=== PATIENT | male | born 1945 | race Caucasian/White ===

== ENCOUNTER 2016-12-26 08:07 | Emergency (ER) | payer MEDICARE, BC ==
--- NOTE | 2016-12-26 08:56 | EDM.PDOC ---
ED HISTORY OF PRESENT ILLNESS - General Chief Complaint: Cardiovascular Problem Stated Complaint: RACING PLUSE Time Seen by Provider: 12/26/16 08:35 Source: Reports: Patient History Limitations: Reports: No limitations - History of Present Illness INITIAL COMMENTS - FREE TEXT/NARRATIVE: 71-year-old male with a history of paroxysmal atrial fibrillation woke this morning at 4:30 AM with palpitations, diaphoretic and malaise. No shortness of breath or chest pain, no nausea or vomiting. When he got up this morning he felt his pulse was still fast and irregular so came in to be checked. No recent illness, no significant medication changes. He did not get his morning medications, carvedilol is one of his meds so he was allowed to take that now. He has not eaten anything this morning. Severity: mild Associated Symptoms: Reports: diaphoresis (Earlier, now resolved), malaise. Denies: chest pain, cough, nausea/vomiting, shortness of breath - Related Data Allergies/ADRs: Allergies Allergy/AdvReac Type Severity Reaction Status Date / Time lisinopril Allergy Cough Verified 08/29/14 08:05 Home Meds: Home Meds Acetaminophen [Acetaminophen 8 Hour] 650 mg PO Q4HR PRN 08/28/14 [History] Alfuzosin [Uroxatral] 10 mg PO DAILY 08/28/14 [History] Ascorbate Calcium [Vitamin C] 500 mg PO DAILY 08/28/14 [History] Aspirin [Low Dose Aspirin EC] 81 mg PO DAILY 08/28/14 [History] Carvedilol [Coreg] 12.5 mg PO BID 08/28/14 [History] Clopidogrel [Plavix] 75 mg PO DAILY 08/28/14 [History] Fish Oil/[place]-3 Fatty Acids [Fish Oil 1,000 MG] 1,000 mg PO BID 08/28/14 [ History] Garlic 1,000 mg PO BID 08/28/14 [History] Losartan Potassium [Cozaar] 50 mg PO DAILY 08/28/14 [History] Multivitamin [Multi-Vitamin Daily] 1 each PO DAILY 08/28/14 [History] Nitroglycerin [Nitrostat] 0.4 mg SL ASDIRECTED 08/28/14 [History] atorvaSTATin [Lipitor] 40 mg PO BEDTIME 08/28/14 [History] amLODIPine [Norvasc] 5 mg PO DAILY 12/26/16 [History] Past Medical History HEENT History: Reports: Impaired vision Cardiovascular History: Reports: Afib, Hypertension, [place] Genitourinary History: Reports: BPH Oncologic (Cancer) History: Reports: Other (see below) Other Oncologic History: colorectal cancer - Infectious Disease History Infectious Disease History: Reports: Chicken pox, Measles, Mumps, Shingles - Past Surgical History Cardiovascular Surgical History: Reports: Carotid stents GI Surgical History: Reports: Hernia repair/other Oncologic Surgical History: Reports: Other (see below) Other Oncologic Surgeries/Procedures: colorectal surgery Dermatological Surgical History: Reports: Other (see below) Social & Family History - Tobacco Use Smoking Status *Q: Never Smoker Second Hand Smoke Exposure: No - Caffeine Use Caffeine Use: Reports: Coffee - Alcohol Use Days Per Week of Alcohol Use: 1 Number of Drinks Per Day: 1 Total Drinks Per Week: 1 - Recreational Drug Use Recreational Drug Use: No Drug Use in Last 12 Months: No ED ROS GENERAL - Review of Systems Review Of Systems: See Below Constitutional: Denies: fever, chills HEENT: Reports: Eye discharge Respiratory: Denies: shortness of breath, cough Cardiovascular: Reports: Palpitations. Denies: Chest pain GI/Abdominal: Denies: Abdominal pain, Nausea, Vomiting : Reports: no symptoms Skin: Reports: diaphoresis (When he woke at 4:30 he was diaphoretic) Neurological: Denies: headache Psychiatric: Reports: No symptoms ED EXAM, GENERAL - Physical Exam Exam: See Below Exam Limited By: No limitations General Appearance: alert, no apparent distress Respiratory/Chest: no respiratory distress, lungs clear Cardiovascular: tachycardia, irregularly irregular GI/Abdominal: soft, non tender Extremities: normal inspection. No: pedal edema Neurological: alert, oriented Psychiatric: normal affect, normal mood Skin Exam: Warm, Dry EKG INTERPRETATION EKG Date: 12/26/16 Rhythm: a-fib Rate (beats/min): 125 ST-T: normal Course - Vital Signs Last Recorded V/S: Last Vital Signs Temp 97.7 F 12/26/16 08:21 Pulse 108 H 12/26/16 09:18 Resp 18 12/26/16 08:21 BP 128/78 12/26/16 09:18 Pulse Ox 97 12/26/16 08:21 - Orders/Labs/Meds Orders: Active Orders 24 hr Category Date Time Status EKG Documentation Completion [RC] ASDIRECTED Care 12/26/16 08:52 Active EKG 12 Lead [EK] Routine Ther 12/26/16 08:52 Ordered Labs: Laboratory Tests 12/26/16 12/26/16 Range/Units 09:02 09:02 WBC 4.4 L (4.5-11.0) K/uL RBC 4.31 (4.30-5.90) M/uL Hgb 13.3 (12.0-15.0) g/dL Hct 38.1 L (40.0-54.0) % MCV 88 (80-98) fL MCH 31 (27-31) pg MCHC 35 (32-36) % Plt Count 225 (150-400) K/uL Neut % (Auto) 65 (36-66) % Lymph % (Auto) 17 L (24-44) % [place] % (Auto) 10 H (2-6) % Eos % (Auto) 7 H (2-4) % Baso % (Auto) 1 (0-1) % Sodium 143 (140-148) mmol/L Potassium 4.1 (3.6-5.2) mmol/L Chloride 108 (100-108) mmol/L Carbon Dioxide 28 (21-32) mmol/L Anion Gap 6.8 (5.0-14.0) mmol/L BUN 21 H D (7-18) mg/dL Creatinine 1.0 (0.8-1.3) mg/dL Est Cr Clr Drug Dosing 65.55 mL/min Estimated GFR (MDRD) > 60 (>60) Glucose 121 H (74-106) mg/dL Calcium 8.3 L (8.5-10.1) mg/dL Troponin I 0.023 (0.000-0.056) ng/mL Meds: Medications Discontinued Medications Generic Name Dose Route Start Last Admin Trade Name Freq PRN Reason Stop Dose Admin Diltiazem HCl 20 mg 12/26/16 09:07 12/26/16 09:18 Diltiazem IVPUSH 12/26/16 09:08 20 mg ONETIME ONE Administration Propofol Confirm 12/26/16 11:02 Diprivan 20 Ml Administered 12/26/16 11:03 Dose 200 mg .ROUTE .STK-MED ONE - Re-Assessments/Exams Free Text/Narrative Re-Assessment/Exam: 12/26/16 08:55 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 His rate was variable ranging from 90-135. BMP, CBC and troponin were obtained and he was allowed to take his regular dose of carvedilol. 12/26/16 11:50 After 20 mg of Cardizem IV his rate slowed to 45-60 for a full half hour but he didn't convert. Dr. Wang of the hospitalist service was consulted and did an elective cardioversion which was successful. Patient will be discharged to resume his regular medications, return as needed Departure - Departure Time of Disposition: 12:46 Disposition: Home, Self-Care 01 Condition: good Clinical Impression: Atrial fibrillation with rapid ventricular response Instructions: Atrial Fibrillation, [id number] Referrals: Cindy Headley NP [Primary Care Provider] - Forms: ED Department Discharge Care Plan Goals: Increase activity as tolerated, resume your regular medications and return anytime if concerns. - My Orders Last 24 Hours: My Active Orders 12/26/16 08:52 EKG Documentation Completion [RC] ASDIRECTED EKG 12 Lead [EK] Routine - Assessment/Plan Last 24 Hours: My Active Orders 12/26/16 08:52 EKG Documentation Completion [RC] ASDIRECTED EKG 12 Lead [EK] Routine
[2016-12-26] MEDS ORDERED: Diltiazem 25 MG/5 ML SDV IVPUSH ONE (09:07)
--- NOTE | 2016-12-26 10:54 | PCM.CONS ---
H&P History of Present Illness - General Date of Service: 12/26/16 Source of Information: Patient, Provider, RN notes reviewed History Limitations: Reports: No limitations - History of Present Illness Initial Comments - Free Text/Narative: Mr. Wright is a 71-year-old gentleman who I been asked to see by Dr. Damon for further evaluation and management atrial fibrillation with rapid ventricular response. Mr. Wright is had a known history of coronary artery disease and is status post previous angioplasty and stent placement. He also is had one previous episode of atrial fibrillation with rapid ventricular response. He was seen and evaluated in the emergency department, given IV diltiazem for rate control and then after approximately 1/2 hour converted to sinus rhythm. He denies any other episodes of atrial fibrillation he's been aware of since then. This morning we will noted rapid irregular heart rhythm he was perhaps mildly lightheaded but denied significant shortness of breath or chest pain. On evaluation in the emergency department he was found to be in atrial fibrillation with rapid ventricular response. Electrolytes are within the desired range and troponin is normal. He has received IV diltiazem but his remained in atrial fibrillation with a slower rate. - Related Data Allergies/Adverse Reactions: Allergies Allergy/AdvReac Type Severity Reaction Status Date / Time lisinopril Allergy Cough Verified 08/29/14 08:05 Home Medications: Home Meds Acetaminophen [Acetaminophen 8 Hour] 650 mg PO Q4HR PRN 08/28/14 [History] Alfuzosin [Uroxatral] 10 mg PO DAILY 08/28/14 [History] Ascorbate Calcium [Vitamin C] 500 mg PO DAILY 08/28/14 [History] Aspirin [Low Dose Aspirin EC] 81 mg PO DAILY 08/28/14 [History] Carvedilol [Coreg] 12.5 mg PO BID 08/28/14 [History] Clopidogrel [Plavix] 75 mg PO DAILY 08/28/14 [History] Fish Oil/[place]-3 Fatty Acids [Fish Oil 1,000 MG] 1,000 mg PO BID 08/28/14 [ History] Garlic 1,000 mg PO BID 08/28/14 [History] Losartan Potassium [Cozaar] 50 mg PO DAILY 08/28/14 [History] Multivitamin [Multi-Vitamin Daily] 1 each PO DAILY 08/28/14 [History] Nitroglycerin [Nitrostat] 0.4 mg SL ASDIRECTED 08/28/14 [History] atorvaSTATin [Lipitor] 40 mg PO BEDTIME 08/28/14 [History] amLODIPine [Norvasc] 5 mg PO DAILY 12/26/16 [History] Past Medical History HEENT History: Reports: Impaired vision Cardiovascular History: Reports: Afib, Hypertension, [place] Genitourinary History: Reports: BPH Oncologic (Cancer) History: Reports: Other (see below) Other Oncologic History: colorectal cancer - Infectious Disease History Infectious Disease History: Reports: Chicken pox, Measles, Mumps, Shingles - Past Surgical History Cardiovascular Surgical History: Reports: Carotid stents GI Surgical History: Reports: Hernia repair/other Oncologic Surgical History: Reports: Other (see below) Other Oncologic Surgeries/Procedures: colorectal surgery Dermatological Surgical History: Reports: Other (see below) Social & Family History - Tobacco Use Smoking Status *Q: Never Smoker Second Hand Smoke Exposure: No - Caffeine Use Caffeine Use: Reports: Coffee - Alcohol Use Days Per Week of Alcohol Use: 1 Number of Drinks Per Day: 1 Total Drinks Per Week: 1 - Recreational Drug Use Recreational Drug Use: No Drug Use in Last 12 Months: No H&P Review of Systems - Review of Systems: Review Of Systems: See Below General: Reports: no symptoms HEENT: Reports: no symptoms Pulmonary: Reports: no symptoms Cardiovascular: Reports: palpitations, lightheadedness. Denies: chest pain, dyspnea on exertion, orthopnea, PND, edema, syncope Gastrointestinal: Reports: No symptoms Musculoskeletal: Reports: no symptoms Exam - Exam Exam: See Below - Vital Signs Vital Signs: Last Vital Signs Temp 97.7 F 12/26/16 08:21 Pulse 108 H 12/26/16 09:18 Resp 18 12/26/16 08:21 BP 128/78 12/26/16 09:18 Pulse Ox 97 12/26/16 08:21 Weight: 180 lb - Exam General: alert, oriented, cooperative Neck: supple, trachea midline, +2 carotid pulse wo bruit Lungs: Clear to auscultation, Normal respiratory effort Cardiovascular: normal S1, normal S2, irregular rhythm, bradycardia. No: systolic murmur, diastolic murmur Abdomen: normal bowel sounds, soft Extremities: 3, normal inspection, 10 - Patient Data Lab Results last 24 hrs: Laboratory Results - last 24 hr 12/26/16 12/26/16 Range/Units 09:02 09:02 WBC 4.4 L (4.5-11.0) K/uL RBC 4.31 (4.30-5.90) M/uL Hgb 13.3 (12.0-15.0) g/dL Hct 38.1 L (40.0-54.0) % MCV 88 (80-98) fL MCH 31 (27-31) pg MCHC 35 (32-36) % Plt Count 225 (150-400) K/uL Neut % (Auto) 65 (36-66) % Lymph % (Auto) 17 L (24-44) % [place] % (Auto) 10 H (2-6) % Eos % (Auto) 7 H (2-4) % Baso % (Auto) 1 (0-1) % Sodium 143 (140-148) mmol/L Potassium 4.1 (3.6-5.2) mmol/L Chloride 108 (100-108) mmol/L Carbon Dioxide 28 (21-32) mmol/L Anion Gap 6.8 (5.0-14.0) mmol/L BUN 21 H D (7-18) mg/dL Creatinine 1.0 (0.8-1.3) mg/dL Est Cr Clr Drug Dosing 65.55 mL/min Estimated GFR (MDRD) > 60 (>60) Glucose 121 H (74-106) mg/dL Calcium 8.3 L (8.5-10.1) mg/dL Troponin I 0.023 (0.000-0.056) ng/mL Result Diagrams: 12/26/16 09:02 12/26/16 09:02 Consult PN Assessment/Plan Procedures: Procedures ASSAY OF TROPONIN QUANT (09/23/14) BIOPSY OF EXTERNAL EAR (08/29/14) COMPLETE CBC W/AUTO DIFF WBC (09/23/14) COMPREHEN METABOLIC PANEL (09/23/14) ELECTROCARDIOGRAM TRACING (09/23/14) EMERGENCY DEPT VISIT (09/23/14) EMERGENCY DEPT VISIT (09/23/14) PRP I/DONALD INIT REDUC >5 YR (08/29/14) ROUTINE VENIPUNCTURE (09/23/14) THER/PROPH/DIAG INJ IV PUSH (09/23/14) VASCULAR STUDY (09/20/15) (1) Atrial fibrillation with rapid ventricular response SNOMED Code(s): 667459135183426 Code(s): I48.91 - UNSPECIFIED ATRIAL FIBRILLATION Current Visit: Yes Problem List Initiated/Reviewed/Updated: Yes Plan: ASSESSMENT AND RECOMMENDATIONS ATRIAL FIBRILLATION WITH RAPID VENTRICULAR RESPONSE-this is his second documented episode, patient is very aware of when he has atrial fibrillation and denies that he was admitted through the day yesterday but definitely awoke with it this morning. He does have known underlying coronary artery disease which has been asymptomatic and he denies current symptoms of chest pain or pressure associated with atrial fibrillation. Rate control significantly improved and actually has been somewhat bradycardic after having received 20 mg of IV Cardizem. Unfortunately he has not yet spontaneously converted and Dr. Horner has asked me to see him to discuss options for management. I discussed with the patient options for current management including further rate controlling medication and observation admission overnight, worse as cardioversion in the emergency department, versus long-term rate control, with anticoagulation and no attempt at cardioversion. After discussion and consideration including the risks and benefits of each approach patient has decided to proceed with electrical cardioversion in the emergency department. He is had nothing to eat or drink some supper last night other than a small amount of water with his Coreg this morning. -Consult anesthesia for IV sedation -Proceed with electrical cardioversion Requesting Provider: PORTER Date Consult Requested: 12/26/16 Patient History Reviewed: Yes Notified Requestor: Yes
[2016-12-26] MEDS ORDERED: Propofol 200 MG/20 ML SDV ONE (11:02)
--- NOTE | 2016-12-26 11:55 | PCM.OPNOTE ---
- General Post-Op/Procedure Note Date of Surgery/Procedure: 12/26/16 Operative Procedure(s): Electrical cardioversion Pre Op Diagnosis: Atrial fibrillation with rapid ventricular response Post-Op Diagnosis: Atrial fibrillation with rapid ventricular response successfully converted to sinus rhythm Primary Surgeon: Germain Wang Complications: None Condition: Good Free Text/Narrative:: This report is a 71-year-old gentleman who presented to the emergency department this morning with new onset of atrial fibrillation with rapid ventricular response. He was given IV diltiazem for rate control but did not spontaneously convert urine options concerning management of the atrial fibrillation were reviewed with the patient including potential benefits and rest. He has decided to proceed with electrical cardioversion. Anesthesia service was consulted and he was given IV propofol for sedation. After adequate sedation was achieved he was cardioverted to sinus rhythm using 200 J of energy delivered in a synchronized fashion. This was successful in converting him to sinus rhythm but unfortunately after short period of time he went back into atrial fibrillation. A second attempt at cardioversion was made using 300 J of energy delivered in a synchronized fashion, this was successful in converting him to sinus rhythm and he remained in sinus rhythm following this conversion. He will be discharged to home when he is recovered from his IV sedation. He's instructed not to drive for a period of 24 hours following the cardioversion. Followup appointment should be scheduled for him with his primary care provider within one week. Consider further evaluation with echocardiogram if he has not had this done recently.
[2016-12-26 13:47] VITALS: BP 123/68
== END 2016-12-26 12:10 | disposition home or self-care (01) ==
LOC: JP.ED 08:07
DX: I48.91 Unspecified atrial fibrillation (principal); I10 Essential (primary) hypertension; I25.2 Old myocardial infarction; Z79.82 Long term (current) use of aspirin; Z88.8 Allergy status to other drugs, medicaments and biological substances
CPT/HCPCS: 36415; 80048; 84484; 85025; 93005; 96374; 99285; J2704; 92960; 93010; 99284; J3490

== ENCOUNTER 2017-05-25 12:00 | Emergency (ER) | payer MEDICARE, BC ==
[2017-05-25] MEDS ORDERED: Sodium Chloride 0.9% 10 ML Syringe FLUSH PRN (12:20)
[2017-05-25] MEDS ORDERED: Sodium Chloride 0.9% 1,000 ML IV ONE ×2 (12:34→15:59)
[2017-05-25] MEDS ORDERED: Diltiazem 25 MG/5 ML SDV IVPUSH ONE (12:35)
[2017-05-25] MEDS ORDERED: Ondansetron 4 MG/2 ML SDV IVPUSH ONE (12:38)
--- NOTE | 2017-05-25 12:40 | EDM.PDOC ---
ED HPI GENERAL MEDICAL PROBLEM - General Chief Complaint: General Stated Complaint: DIZZY HEART RATE SKIPPING AROUND Time Seen by Provider: 05/25/17 12:25 Source of Information: Reports: Patient History Limitations: Reports: No Limitations - History of Present Illness INITIAL COMMENTS - FREE TEXT/NARRATIVE: Oswaldo is a 71 year old male with a hx of paroxysmal atrial fibrillation who presents to the ED with c/o lightheadedness, nausea, and generally not feeling well since 0600 this morning. Patient reports he felt palpitations at that time and proceeded to go into atrial fibrillation. Patient has the same presentation in December and was cardioverted here in the ED after failure of diltiazem. Patient denies any chest pain/sob. Patient denies any URI symptoms , or fever/chills Onset: Today, Sudden Onset Date: 05/25/17 Onset Time: 06:00 - Related Data Allergies Allergy/AdvReac Type Severity Reaction Status Date / Time lisinopril AdvReac Cough Verified 05/25/17 15:10 Home Meds: Home Meds Acetaminophen [Acetaminophen 8 Hour] 650 mg PO Q4HR PRN 08/28/14 [History] Alfuzosin [Uroxatral] 10 mg PO DAILY 08/28/14 [History] Ascorbate Calcium [Vitamin C] 500 mg PO DAILY 08/28/14 [History] Aspirin [Low Dose Aspirin EC] 81 mg PO DAILY 08/28/14 [History] Carvedilol [Coreg] 12.5 mg PO BID 08/28/14 [History] Clopidogrel [Plavix] 75 mg PO DAILY 08/28/14 [History] Fish Oil/[place]-3 Fatty Acids [Fish Oil 1,000 MG] 1,000 mg PO BID 08/28/14 [ History] Garlic 1,000 mg PO BID 08/28/14 [History] Losartan Potassium [Cozaar] 50 mg PO DAILY 08/28/14 [History] Multivitamin [Multi-Vitamin Daily] 1 each PO DAILY 08/28/14 [History] Nitroglycerin [Nitrostat] 0.4 mg SL ASDIRECTED 08/28/14 [History] atorvaSTATin [Lipitor] 40 mg PO BEDTIME 08/28/14 [History] amLODIPine [Norvasc] 5 mg PO DAILY 12/26/16 [History] Past Medical History HEENT History: Reports: Impaired Vision Cardiovascular History: Reports: High Cholesterol, Hypertension, [place] Genitourinary History: Reports: BPH Oncologic (Cancer) History: Reports: Other (See Below) Other Oncologic History: colorectal, chemo radiation and surgery - Infectious Disease History Infectious Disease History: Reports: Chicken Pox, Measles, Mumps, Shingles - Past Surgical History Cardiovascular Surgical History: Reports: Carotid Stents Other Cardiovascular Surgeries/Procedures: last time for stents 2007 GI Surgical History: Reports: Hernia Repair/Other Oncologic Surgical History: Reports: Other (See Below) Dermatological Surgical History: Reports: Other (See Below) Social & Family History - Tobacco Use Smoking Status *Q: Never Smoker Second Hand Smoke Exposure: No - Caffeine Use Caffeine Use: Reports: Coffee - Alcohol Use Days Per Week of Alcohol Use: 1 Number of Drinks Per Day: 1 Total Drinks Per Week: 1 - Recreational Drug Use Recreational Drug Use: No Drug Use in Last 12 Months: No ED ROS GENERAL - Review of Systems Review Of Systems: See Below HEENT: Reports: No Symptoms Respiratory: Reports: No Symptoms Cardiovascular: Reports: Lightheadedness Endocrine: Reports: Fatigue GI/Abdominal: Reports: Nausea : Reports: No Symptoms Musculoskeletal: Reports: No Symptoms Skin: Reports: No Symptoms ED EXAM, GENERAL - Physical Exam Exam: See Below Exam Limited By: No Limitations General Appearance: Alert Respiratory/Chest: No Respiratory Distress, Lungs Clear, Normal Breath Sounds Cardiovascular: Tachycardia, Irregularly Irregular GI/Abdominal: Normal Bowel Sounds, Soft, Non-Tender Extremities: Normal Inspection Neurological: Alert, Oriented, CN II-XII Intact Psychiatric: Normal Affect Skin Exam: Warm, Dry, Pallor Lymphatic: No Adenopathy ED GENERAL MEDICAL PROCEDURES - Additional/Other Procedure(s) Other (Free Text) Procedure(s): Cardioversion at 1520 with 200 J after obtaining consent, time out called prior to procedure. Patient sedated with 80 mg of Propofol prior to cardioversion and cardioverted nicely after one shock to NSR, bradycardic in the 50's. EKG obtained. Patient recovering, maintaining airway and VS stable. Dr. Horner at bedside for sedation and cardioversion. EKG INTERPRETATION EKG Date: 05/25/17 Time: 12:40 Rhythm: A-Fib Rate (Beats/Min): 117 [place]: Normal P-Wave: Absent QRS: Normal ST-T: Normal QT: Normal Comparison: No Change EKG Interpretation Comments: No change from 12/26/2016 Repeat EKG at 1530 shows a sinus bradycardia. Course - Vital Signs Last Recorded V/S: Last Vital Signs Temp 36.7 C 05/25/17 14:40 Pulse 75 05/25/17 14:40 Resp 16 05/25/17 14:40 BP 144/81 H 05/25/17 14:40 Pulse Ox 94 L 05/25/17 14:40 Normal is a 71 year old male with a hx of Paroxysmal atrial fibrillation who presents to the ED today with c/o dizziness/lightheadedness, nausea and not feeling well since 0600 this am, similar in presentation to December of this year when he required cardioversion. PIV established, patient was given a liter of NS and 25 mg of Diltiazem, his rate slowed to upper 60's to upper 80's but he continues to remain in atrial fibrillation which is not surprising considering he needed cardioversion in the past. Patient is on Plavix and well within the window for cardioversion, he is agreeable to proceed, risks/benefits discussed and consent signed. Will use propofol for sedation, patient has no issues with sedation in the past. NPO since last night. 1600-Patient reports he is feeling much better. He is awake, eating and drinking, remains in sinus rhythm. Vital signs stable. Discussed follow up with cardiology. Reasons to return to the ED discussed. Patient agreeable and discharged in stable condition with his driving. - Orders/Labs/Meds Orders: Active Orders 24 hr Category Date Time Status Cardiac Monitoring [RC] .As Directed Care 05/25/17 13:55 Active Cardioversion, Elective [RC] ASDIRECTED Care 05/25/17 13:56 Active EKG Documentation Completion [RC] ASDIRECTED Care 05/25/17 12:07 Active EKG Documentation Completion [RC] ASDIRECTED Care 05/25/17 15:03 Active Peripheral IV Care [RC] . DIRECTED Care 05/25/17 12:20 Active Sedation Scale [RASS Sedation Scale] [RC] ASDIRECTED Care 05/25/17 13:54 Active Sodium Chloride 0.9% [Saline Flush] Med 05/25/17 12:20 Active 10 ml FLUSH ASDIRECTED PRN Peripheral IV Insertion Adult [OM.PC] Routine Oth 05/25/17 12:20 Ordered EKG 12 Lead [EK] Routine Ther 05/25/17 15:03 Ordered EKG 12 Lead [EK] Stat Ther 05/25/17 12:07 Ordered Medication Orders Sodium Chloride (Saline Flush) 10 ml FLUSH ASDIRECTED PRN PRN Reason: Keep Vein Open Last Admin: 05/25/17 13:14 Dose: 10 ml Labs: Laboratory Tests 05/25/17 05/25/17 Range/Units 12:50 12:50 WBC 3.5 L (4.5-11.0) K/uL RBC 4.49 (4.30-5.90) M/uL Hgb 13.7 (12.0-15.0) g/dL Hct 39.1 L (40.0-54.0) % MCV 87 (80-98) fL MCH 31 (27-31) pg MCHC 35 (32-36) % Plt Count 216 (150-400) K/uL Neut % (Auto) 71 H (36-66) % Lymph % (Auto) 15 L (24-44) % [place] % (Auto) 8 H (2-6) % Eos % (Auto) 6 H (2-4) % Baso % (Auto) 1 (0-1) % Sodium 142 (140-148) mmol/L Potassium 3.7 (3.6-5.2) mmol/L Chloride 107 (100-108) mmol/L Carbon Dioxide 28 (21-32) mmol/L Anion Gap 6.8 (5.0-14.0) mmol/L BUN 12 (7-18) mg/dL Creatinine 1.0 (0.8-1.3) mg/dL Est Cr Clr Drug Dosing 65.55 mL/min Estimated GFR (MDRD) > 60 (>60) Glucose 150 H (74-106) mg/dL Calcium 8.6 (8.5-10.1) mg/dL Total Bilirubin 0.9 (0.2-1.0) mg/dL AST 26 (15-37) U/L ALT 26 (12-78) U/L Alkaline Phosphatase 76 (46-116) U/L Troponin I 0.019 (0.000-0.056) ng/mL Total Protein 7.3 (6.4-8.2) g/dL Albumin 3.6 (3.4-5.0) g/dL Globulin 3.7 H (2.3-3.5) g/dL Albumin/Globulin Ratio 1.0 L (1.2-2.2) Meds: Medications Generic Name Dose Route Start Last Admin Trade Name Freq PRN Reason Stop Dose Admin Sodium Chloride 10 ml 05/25/17 12:20 05/25/17 13:14 Saline Flush FLUSH 10 ml ASDIRECTED PRN Administration Keep Vein Open Discontinued Medications Generic Name Dose Route Start Last Admin Trade Name Freq PRN Reason Stop Dose Admin Diltiazem HCl 25 mg 05/25/17 12:35 05/25/17 13:09 Diltiazem IVPUSH 05/25/17 12:36 25 mg ONETIME ONE Administration Sodium Chloride 1,000 mls @ 500 mls/hr 05/25/17 12:34 05/25/17 12:53 Normal Saline IV 05/25/17 14:33 500 mls/hr .BOLUS ONE Administration Ondansetron HCl 4 mg 05/25/17 12:38 05/25/17 13:05 Zofran IVPUSH 05/25/17 12:39 4 mg ONETIME ONE Administration Propofol 200 mg 05/25/17 13:54 05/25/17 15:32 Diprivan 20 Ml IVPUSH 05/25/17 13:55 200 mg ONETIME ONE Administration Departure - Departure Time of Disposition: 16:30 Disposition: Home, Self-Care 01 Condition: Good Clinical Impression: Paroxysmal a-fib - Discharge Information Instructions: Atrial Fibrillation Forms: ED Department Discharge Additional Instructions: Oswaldo, Make sure you are staying well hydrated. I would like you to see cardiology and your primary MD this next week. Take your previously prescribed medications as prescribed. Return to the ED with any complications or concerns. - My Orders Last 24 Hours: My Active Orders 05/25/17 12:07 EKG Documentation Completion [RC] ASDIRECTED EKG 12 Lead [EK] Stat 05/25/17 12:20 Peripheral IV Care [RC] . DIRECTED Sodium Chloride 0.9% [Saline Flush] 10 ml FLUSH ASDIRECTED PRN Peripheral IV Insertion Adult [OM.PC] Routine 05/25/17 13:54 Sedation Scale [RASS Sedation Scale] [RC] ASDIRECTED 05/25/17 13:55 Cardiac Monitoring [RC] .As Directed 05/25/17 13:56 Cardioversion, Elective [RC] ASDIRECTED 05/25/17 15:03 EKG Documentation Completion [RC] ASDIRECTED EKG 12 Lead [EK] Routine - Assessment/Plan Last 24 Hours: My Active Orders 05/25/17 12:07 EKG Documentation Completion [RC] ASDIRECTED EKG 12 Lead [EK] Stat 05/25/17 12:20 Peripheral IV Care [RC] . DIRECTED Sodium Chloride 0.9% [Saline Flush] 10 ml FLUSH ASDIRECTED PRN Peripheral IV Insertion Adult [OM.PC] Routine 05/25/17 13:54 Sedation Scale [RASS Sedation Scale] [RC] ASDIRECTED 05/25/17 13:55 Cardiac Monitoring [RC] .As Directed 05/25/17 13:56 Cardioversion, Elective [RC] ASDIRECTED 05/25/17 15:03 EKG Documentation Completion [RC] ASDIRECTED EKG 12 Lead [EK] Routine
[2017-05-25] MEDS ORDERED: Propofol 200 MG/20 ML SDV IVPUSH ONE (13:54)
[2017-05-25 14:42] VITALS: BP 144/81
== END 2017-05-25 16:36 | disposition home or self-care (01) ==
LOC: JP.ED 12:00
DX: I48.0 Paroxysmal atrial fibrillation (principal); E78.00 Pure hypercholesterolemia, unspecified; I10 Essential (primary) hypertension; I25.2 Old myocardial infarction; Z98.890 Other specified postprocedural states; Z85.038 Personal history of other malignant neoplasm of large intestine; Z79.899 Other long term (current) drug therapy; Z79.82 Long term (current) use of aspirin; Z88.8 Allergy status to other drugs, medicaments and biological substances
CPT/HCPCS: 36415; 80053; 84484; 85025; 92960; 93005; 96361; 96374; 96375; 99284; J2405; J2704; J7040; J7050; 93010; J3490

== ENCOUNTER 2017-07-02 07:33 | Emergency (ER) | payer MEDICARE, BC ==
--- NOTE | 2017-07-02 08:13 | EDM.PDOC ---
ED HPI GENERAL MEDICAL PROBLEM - General Chief Complaint: Cardiovascular Problem Stated Complaint: A FIB Time Seen by Provider: 07/02/17 07:50 Source of Information: Reports: Patient, Family History Limitations: Reports: No Limitations - History of Present Illness INITIAL COMMENTS - FREE TEXT/NARRATIVE: pt aarrived with a history of palpatations which started at 6 am. He did not have chest pain. He has had atrial fib 2 other times and was electrically cardoverted. The las cardioversion was in may. Onset: Today, Other ( started at 6 am. ) Duration: Hour(s): Location: Reports: Chest Associated Symptoms: Reports: No Other Symptoms - Related Data Allergies Allergy/AdvReac Type Severity Reaction Status Date / Time lisinopril AdvReac Cough Verified 07/02/17 07:45 Home Meds: Home Meds Acetaminophen [Acetaminophen 8 Hour] 650 mg PO Q4HR PRN 08/28/14 [History] Alfuzosin [Uroxatral] 10 mg PO DAILY 08/28/14 [History] Ascorbate Calcium [Vitamin C] 500 mg PO DAILY 08/28/14 [History] Aspirin [Low Dose Aspirin EC] 81 mg PO DAILY 08/28/14 [History] Carvedilol [Coreg] 12.5 mg PO BID 08/28/14 [History] Fish Oil/[place]-3 Fatty Acids [Fish Oil 1,000 MG] 1,000 mg PO BID 08/28/14 [ History] Garlic 1,000 mg PO BID 08/28/14 [History] Losartan Potassium [Cozaar] 50 mg PO DAILY 08/28/14 [History] Multivitamin [Multi-Vitamin Daily] 1 each PO DAILY 08/28/14 [History] Nitroglycerin [Nitrostat] 0.4 mg SL ASDIRECTED 08/28/14 [History] atorvaSTATin [Lipitor] 40 mg PO BEDTIME 08/28/14 [History] amLODIPine [Norvasc] 5 mg PO DAILY 12/26/16 [History] Rivaroxaban [Xarelto] 1 tab PO DAILY 07/02/17 [History] Past Medical History HEENT History: Reports: Impaired Vision Cardiovascular History: Reports: High Cholesterol, Hypertension, [place] Genitourinary History: Reports: BPH Oncologic (Cancer) History: Reports: Other (See Below) Other Oncologic History: colorectal, chemo radiation and surgery - Infectious Disease History Infectious Disease History: Reports: Chicken Pox, Measles, Mumps, Shingles - Past Surgical History Cardiovascular Surgical History: Reports: Carotid Stents Other Cardiovascular Surgeries/Procedures: last time for stents 2007 GI Surgical History: Reports: Colonoscopy, Hernia Repair/Other, Other (See Below ) Other GI Surgeries/Procedures: small section of colon removed through rectum d/ t cancer Social & Family History - Tobacco Use Smoking Status *Q: Never Smoker Second Hand Smoke Exposure: No - Caffeine Use Caffeine Use: Reports: Coffee - Alcohol Use Days Per Week of Alcohol Use: 1 Number of Drinks Per Day: 1 Total Drinks Per Week: 1 - Recreational Drug Use Recreational Drug Use: No Drug Use in Last 12 Months: No ED ROS GENERAL - Review of Systems Review Of Systems: See Below Constitutional: Reports: No Symptoms HEENT: Reports: No Symptoms Respiratory: Reports: Shortness of Breath, Other ( very mild sob. ) Cardiovascular: Reports: Palpitations, Other (pt felt likd his heart was very irregular. ) Endocrine: Reports: No Symptoms GI/Abdominal: Reports: No Symptoms : Reports: No Symptoms Musculoskeletal: Reports: No Symptoms Skin: Reports: No Symptoms ED EXAM, GENERAL - Physical Exam Exam: See Below Free Text/Narrative:: pt arrived with a rapid irregular haeart beat. He thought he was inatrial fib. Exam Limited By: No Limitations General Appearance: Alert, Mild Distress Ears: Normal TMs Nose: Normal Inspection Throat/Mouth: Normal Inspection Head: Atraumatic Neck: Normal Inspection Respiratory/Chest: No Respiratory Distress Cardiovascular: Tachycardia, Irregularly Irregular, Other ( rate is 117. he has no chest pain. ) GI/Abdominal: Soft, Non-Tender (Male) Exam: Deferred Rectal (Males) Exam: Deferred Extremities: Normal Inspection Neurological: Alert, Oriented, Normal Cognition Psychiatric: Normal Affect Course - Vital Signs Last Recorded V/S: Last Vital Signs Temp 35.6 C 07/02/17 07:42 Pulse 119 H 07/02/17 08:44 Resp 20 07/02/17 08:44 BP 127/71 07/02/17 08:44 Pulse Ox 98 07/02/17 08:44 - Orders/Labs/Meds Orders: Active Orders 24 hr Category Date Time Status EKG Documentation Completion [RC] ASDIRECTED Care 07/02/17 07:55 Active Chest 1V Frontal [CR] Stat Exams 07/02/17 08:14 Taken Sodium Chloride 0.9% [Normal Saline] 1,000 ml Med 07/02/17 08:45 Active IV ASDIRECTED EKG 12 Lead [EK] Routine Ther 07/02/17 07:55 Ordered Medication Orders Sodium Chloride (Normal Saline) 1,000 mls @ 200 mls/hr IV ASDIRECTED JAY Last Admin: 07/02/17 09:01 Dose: 200 mls/hr Labs: Laboratory Tests 07/02/17 07/02/17 07/02/17 Range/Units 08:00 08:00 08:00 WBC 3.9 L (4.5-11.0) K/uL RBC 4.35 (4.30-5.90) M/uL Hgb 13.5 (12.0-15.0) g/dL Hct 38.1 L (40.0-54.0) % MCV 88 (80-98) fL MCH 31 (27-31) pg MCHC 35 (32-36) % Plt Count 211 (150-400) K/uL Neut % (Auto) 62 (36-66) % Lymph % (Auto) 19 L (24-44) % [place] % (Auto) 11 H (2-6) % Eos % (Auto) 7 H (2-4) % Baso % (Auto) 1 (0-1) % Sodium 143 (140-148) mmol/L Potassium 3.9 (3.6-5.2) mmol/L Chloride 108 (100-108) mmol/L Carbon Dioxide 29 (21-32) mmol/L Anion Gap 6.4 (5.0-14.0) mmol/L BUN 12 (7-18) mg/dL Creatinine 0.9 (0.8-1.3) mg/dL Est Cr Clr Drug Dosing 72.83 mL/min Estimated GFR (MDRD) > 60 (>60) Glucose 111 H (74-106) mg/dL Calcium 8.7 (8.5-10.1) mg/dL Total Bilirubin 0.8 (0.2-1.0) mg/dL AST 28 (15-37) U/L ALT 28 (12-78) U/L Alkaline Phosphatase 72 (46-116) U/L Creatine Kinase 174 (39-308) U/L Troponin I < 0.017 (0.000-0.056) ng/mL Total Protein 7.2 (6.4-8.2) g/dL Albumin 3.6 (3.4-5.0) g/dL Globulin 3.6 H (2.3-3.5) g/dL Albumin/Globulin Ratio 1.0 L (1.2-2.2) Urine Color Urine Appearance Urine pH (4.5-8.0) Ur Specific [place] (1.008-1.030) Urine Protein (NEGATIVE) mg/dL Urine Glucose (UA) (NEGATIVE) mg/dL Urine Ketones (NEGATIVE) mg/dL Urine Occult Blood (NEGATIVE) Urine Nitrite (NEGAITVE) Urine Bilirubin (NEGATIVE) Urine Urobilinogen (NORMAL) mg/dL Ur Leukocyte Esterase (NEGATIVE) Urine RBC (0-5) Urine WBC (0-5) Ur Epithelial Cells Amorphous Sediment Urine Bacteria Urine Mucus 07/02/17 Range/Units 08:02 WBC (4.5-11.0) K/uL RBC (4.30-5.90) M/uL Hgb (12.0-15.0) g/dL Hct (40.0-54.0) % MCV (80-98) fL MCH (27-31) pg MCHC (32-36) % Plt Count (150-400) K/uL Neut % (Auto) (36-66) % Lymph % (Auto) (24-44) % [place] % (Auto) (2-6) % Eos % (Auto) (2-4) % Baso % (Auto) (0-1) % Sodium (140-148) mmol/L Potassium (3.6-5.2) mmol/L Chloride (100-108) mmol/L Carbon Dioxide (21-32) mmol/L Anion Gap (5.0-14.0) mmol/L BUN (7-18) mg/dL Creatinine (0.8-1.3) mg/dL Est Cr Clr Drug Dosing mL/min Estimated GFR (MDRD) (>60) Glucose (74-106) mg/dL Calcium (8.5-10.1) mg/dL Total Bilirubin (0.2-1.0) mg/dL AST (15-37) U/L ALT (12-78) U/L Alkaline Phosphatase (46-116) U/L Creatine Kinase (39-308) U/L Troponin I (0.000-0.056) ng/mL Total Protein (6.4-8.2) g/dL Albumin (3.4-5.0) g/dL Globulin (2.3-3.5) g/dL Albumin/Globulin Ratio (1.2-2.2) Urine Color Yellow Urine Appearance Clear Urine pH 8.0 (4.5-8.0) Ur Specific [place] 1.010 (1.008-1.030) Urine Protein Negative (NEGATIVE) mg/dL Urine Glucose (UA) Normal (NEGATIVE) mg/dL Urine Ketones Negative (NEGATIVE) mg/dL Urine Occult Blood Negative (NEGATIVE) Urine Nitrite Negative (NEGAITVE) Urine Bilirubin Negative (NEGATIVE) Urine Urobilinogen Normal (NORMAL) mg/dL Ur Leukocyte Esterase Negative (NEGATIVE) Urine RBC Not seen (0-5) Urine WBC Not seen (0-5) Ur Epithelial Cells Not seen Amorphous Sediment Not seen Urine Bacteria Not seen Urine Mucus Not seen Meds: Medications Generic Name Dose Route Start Last Admin Trade Name Gunjan PRN Reason Stop Dose Admin Sodium Chloride 1,000 mls @ 200 mls/hr 07/02/17 08:45 07/02/17 09:01 Normal Saline IV 200 mls/hr ASDIRECTED JAY Administration - Re-Assessments/Exams Free Text/Narrative Re-Assessment/Exam: 07/02/17 09:02 pt was shocked and converted. He has appt for a evaluation for a ablation with cardiology in [place]. will start cardizem, 120 cd daily Departure - Departure Time of Disposition: 09:07 Disposition: Home, Self-Care 01 Condition: Fair Clinical Impression: Atrial fibrillation, Atrial fibrillation status post cardioversion Referrals: Cindy Headley NP [Primary Care Provider] - Forms: ED Department Discharge Care Plan Goals: amlodopene 5mg-- decrease to 1/2 tab daily, add cardiozem 120mg cd 1 tab daily to maintain rhythm, keep appt with cardiology in Jul. - My Orders Last 24 Hours: My Active Orders 07/02/17 07:55 EKG Documentation Completion [RC] ASDIRECTED EKG 12 Lead [EK] Routine 07/02/17 08:14 Chest 1V Frontal [CR] Stat 07/02/17 08:45 Sodium Chloride 0.9% [Normal Saline] 1,000 ml IV ASDIRECTED - Assessment/Plan Last 24 Hours: My Active Orders 07/02/17 07:55 EKG Documentation Completion [RC] ASDIRECTED EKG 12 Lead [EK] Routine 07/02/17 08:14 Chest 1V Frontal [CR] Stat 07/02/17 08:45 Sodium Chloride 0.9% [Normal Saline] 1,000 ml IV ASDIRECTED
[2017-07-02] MEDS ORDERED: Sodium Chloride 0.9% 1,000 ML IV SCH (08:45)
[2017-07-02] MEDS ORDERED: Propofol 200 MG/20 ML SDV ONE (09:05)
--- NOTE | 2017-07-02 09:30 | PCM.PRNOTE ---
- Free Text/Narrative Note: Date of service: 07/02/17 Proposed procedure: synchronized cardioversion Preprocedure diagnosis: afib with RVR Post procedure diagnosis: afib with RVR Indication for procedure: Jj was evaluated today regarding atrial fibrillation with rapid ventricular response. Synchronized cardioversion was recommended as a primary treatment. He is fully anticoagulated. Description of the procedure: Jj is currently located [facility]. We have reviewed the potential risks of electrical cardioversion including but not limited to: Superficial skin núñez, ineffective treatment, other arrhythmias, reaction to anesthesia medications or potentially asystole. The benefits of the procedure have also been reviewed. At this time the patient wishes to proceed with electrical cardioversion. All necessary pre-procedure information and paperwork has been provided and completed, respectively. The patient was connected to cardioversion pads and monitoring equipment per protocol. Prior to the procedure, a timeout was held with nursing and anesthesia present to confirm the right patient and right procedure. Once appropriate anesthesia was applied the machine was charged to 150 Joules and an electrical shock was applied. The patient was successfully converted to normal sinus rhythm and this was confirmed with a post procedure EKG. They will remain in their current location until anesthesia has dissipated and the patient is more awake and alert. They will then be discharged to home once medically stable. Anticoagulation should be continued for at least one month post cardioversion. There were no immediate complications noted from the procedure. He has cardiology f/u scheduled. He will be started on a low dose of diltiazem to help prevent future arrhythmias. Enrike Saunders M.D.
[2017-07-02] MEDS ORDERED: Diltiazem 120 MG Cap.CD PO ONE (09:59)
[2017-07-02 10:23] VITALS: BP 142/95
--- NOTE | 2017-07-02 11:58 | CR ---
Mild cardiomegaly. Old right rib fracture. No evidence for vascular congestion. No focal consolidatio n.
== END 2017-07-02 10:50 | disposition home or self-care (01) ==
LOC: JP.ED 07:33
DX: I48.91 Unspecified atrial fibrillation (principal); H54.7 Unspecified visual loss; E78.00 Pure hypercholesterolemia, unspecified; I25.2 Old myocardial infarction; Z88.8 Allergy status to other drugs, medicaments and biological substances; Z79.899 Other long term (current) drug therapy
CPT/HCPCS: 36415; 71010; 80053; 81001; 82550; 84484; 85025; 93005; 96360; 96361; 99285; A9270; J2704; J7040; 93010; 99284

== ENCOUNTER 2017-07-09 07:27 | Emergency (ER) | payer MEDICARE, BC ==
--- NOTE | 2017-07-09 07:56 | EDM.PDOC ---
ED HPI GENERAL MEDICAL PROBLEM - General Chief Complaint: Cardiovascular Problem Stated Complaint: A-FIB Time Seen by Provider: 07/09/17 07:44 Source of Information: Reports: Patient, Old Records, RN Notes Reviewed History Limitations: Reports: No Limitations - History of Present Illness INITIAL COMMENTS - FREE TEXT/NARRATIVE: 71-year-old gentleman presents emergency department day complaint of palpitations, he has a known history of atrial fibrillation status post conversion 3. He states he awoke this morning approximately 5:15 AM with palpitations. Denies any chest pain nausea vomiting shortness of breath. Reported to the emergency department for further evaluation. His last conversion was 1 week ago electrical substrate only started on Cardizem XL 120 mg once a day, he states he has been taking this medication has been tolerating it he does have an appointment with electrophysiology in [place] July 31 Denies Pain Score (Numeric/FACES): 0 - Related Data Allergies Allergy/AdvReac Type Severity Reaction Status Date / Time lisinopril AdvReac Cough Verified 07/09/17 07:42 Home Meds: Home Meds Acetaminophen [Acetaminophen 8 Hour] 650 mg PO Q4HR PRN 08/28/14 [History] Alfuzosin [Uroxatral] 10 mg PO DAILY 08/28/14 [History] Ascorbate Calcium [Vitamin C] 500 mg PO DAILY 08/28/14 [History] Aspirin [Low Dose Aspirin EC] 81 mg PO DAILY 08/28/14 [History] Carvedilol [Coreg] 12.5 mg PO BID 08/28/14 [History] Fish Oil/[place]-3 Fatty Acids [Fish Oil 1,000 MG] 1,000 mg PO BID 08/28/14 [ History] Garlic 1,000 mg PO BID 08/28/14 [History] Losartan Potassium [Cozaar] 50 mg PO DAILY 08/28/14 [History] Multivitamin [Multi-Vitamin Daily] 1 each PO DAILY 08/28/14 [History] Nitroglycerin [Nitrostat] 0.4 mg SL ASDIRECTED 08/28/14 [History] atorvaSTATin [Lipitor] 40 mg PO BEDTIME 08/28/14 [History] amLODIPine [Norvasc] 2.5 mg PO DAILY 12/26/16 [History] Rivaroxaban [Xarelto] 1 tab PO DAILY 07/02/17 [History] Diltiazem HCl [Cartia Xt] 1 tab PO DAILY 07/09/17 [History] Past Medical History HEENT History: Reports: Impaired Vision Cardiovascular History: Reports: Afib, CAD, High Cholesterol, Hypertension, [place] Genitourinary History: Reports: BPH Oncologic (Cancer) History: Reports: Other (See Below) Other Oncologic History: colorectal, chemo radiation and surgery - Infectious Disease History Infectious Disease History: Reports: Chicken Pox, Measles, Mumps, Shingles - Past Surgical History Cardiovascular Surgical History: Reports: Carotid Stents Other Cardiovascular Surgeries/Procedures: last time for stents 2007 GI Surgical History: Reports: Colonoscopy, Hernia Repair/Other, Other (See Below ) Other GI Surgeries/Procedures: small section of colon removed through rectum d/ t cancer Social & Family History - Tobacco Use Smoking Status *Q: Never Smoker Second Hand Smoke Exposure: No - Caffeine Use Caffeine Use: Reports: Coffee - Alcohol Use Days Per Week of Alcohol Use: 1 Number of Drinks Per Day: 1 Total Drinks Per Week: 1 - Recreational Drug Use Recreational Drug Use: No Drug Use in Last 12 Months: No ED ROS GENERAL - Review of Systems Review Of Systems: See Below Constitutional: Reports: No Symptoms HEENT: Reports: No Symptoms Cardiovascular: Reports: Palpitations. Denies: Chest Pain GI/Abdominal: Reports: No Symptoms : Reports: No Symptoms ED EXAM, GENERAL - Physical Exam Exam: See Below Exam Limited By: No Limitations General Appearance: Alert, WD/WN, No Apparent Distress Neck: Normal Inspection, Supple, Non-Tender, Full Range of Motion Respiratory/Chest: No Respiratory Distress, Lungs Clear, Normal Breath Sounds, No Accessory Muscle Use Cardiovascular: Regular Rate, Rhythm GI/Abdominal: Soft, Non-Tender Course - Vital Signs Last Recorded V/S: Last Vital Signs Temp 96.8 F 07/09/17 07:40 Pulse 51 L 07/09/17 08:57 Resp 16 07/09/17 08:57 BP 127/75 07/09/17 08:57 Pulse Ox 99 07/09/17 08:57 - Orders/Labs/Meds Orders: Active Orders 24 hr Category Date Time Status Cardiac Monitoring [RC] .As Directed Care 07/09/17 07:55 Active EKG Documentation Completion [RC] ASDIRECTED Care 07/09/17 07:56 Active EKG 12 Lead [EK] Stat Ther 07/09/17 07:55 Ordered Labs: Laboratory Tests 07/09/17 07/09/17 07/09/17 Range/Units 08:00 08:00 09:46 WBC 3.5 L (4.5-11.0) K/uL RBC 4.16 L (4.30-5.90) M/uL Hgb 12.7 (12.0-15.0) g/dL Hct 36.5 L (40.0-54.0) % MCV 88 (80-98) fL MCH 31 (27-31) pg MCHC 35 (32-36) % Plt Count 206 (150-400) K/uL Neut % (Auto) 64 (36-66) % Lymph % (Auto) 16 L (24-44) % Major % (Auto) 13 H (2-6) % Eos % (Auto) 7 H (2-4) % Baso % (Auto) 1 (0-1) % Sodium 144 (140-148) mmol/L Potassium 3.9 (3.6-5.2) mmol/L Chloride 108 (100-108) mmol/L Carbon Dioxide 28 (21-32) mmol/L Anion Gap 7.9 (5.0-14.0) mmol/L BUN 17 (7-18) mg/dL Creatinine 0.9 (0.8-1.3) mg/dL Est Cr Clr Drug Dosing 72.83 mL/min Estimated GFR (MDRD) > 60 (>60) Glucose 112 H (74-106) mg/dL Calcium 8.5 (8.5-10.1) mg/dL Total Bilirubin 0.7 (0.2-1.0) mg/dL AST 32 (15-37) U/L ALT 29 (12-78) U/L Alkaline Phosphatase 68 (46-116) U/L CK-MB (CK-2) 7.2 H* 6.5 H* (0-3.6) mg/mL Troponin I 0.017 < 0.017 (0.000-0.056) ng/mL Total Protein 7.0 (6.4-8.2) g/dL Albumin 3.5 (3.4-5.0) g/dL Globulin 3.5 (2.3-3.5) g/dL Albumin/Globulin Ratio 1.0 L (1.2-2.2) Departure - Departure Time of Disposition: 10:37 Disposition: Home, Self-Care 01 Condition: Good Clinical Impression: Atrial fibrillation Qualifiers: Atrial fibrillation type: paroxysmal Qualified Code(s): I48.0 - Paroxysmal atrial fibrillation Referrals: Cindy Headley NP [Primary Care Provider] - Forms: ED Department Discharge Additional Instructions: Increased her Cardizem from 120 mg once a day to 240 mg once a day, please keep your follow-up appointment with cardiology on July 31, call or return to the emergency department with worsening of symptoms - My Orders Last 24 Hours: My Active Orders 07/09/17 07:55 Cardiac Monitoring [RC] .As Directed EKG 12 Lead [EK] Stat 07/09/17 07:56 EKG Documentation Completion [RC] ASDIRECTED - Assessment/Plan Last 24 Hours: My Active Orders 07/09/17 07:55 Cardiac Monitoring [RC] .As Directed EKG 12 Lead [EK] Stat 07/09/17 07:56 EKG Documentation Completion [RC] ASDIRECTED Plan: Assessment Acuity = acute Site and laterality = paroxysmal atrial fibrillation complicated patient with known history of coronary artery disease dyslipidemia and hypertension Etiology = unclear etiology Manifestations = none Location of injury = Home Lab values = WBC low at 3.5 consistent leukopenia, CMP unremarkable, CK-MB initial value 7. 2 repeat 2 hours later 6.5 troponin was negative 2 EKG demonstrates a sinus rhythm with left axis deviation in T waves in 3 V5 and V6 with Q waves in 3 similar to prior EKGs plan I did review options with him we elected to increase his Cardizem from 120 mg once a day to 240 mg once a day he does have a follow-up appointment with cardiology on 31 July. No conversion was done as he spontaneously converted by himself we observed him for several hours remained in sinus rhythm Patient was in agreement with the plan all questions were answered, they were instructed to return to the emergency department or call for worsening symptoms. This note was dictated using [employer] voice recognition software please call with any questions.
[2017-07-09 10:40] VITALS: BP 129/78
== END 2017-07-09 10:45 | disposition home or self-care (01) ==
LOC: JP.ED 07:27
DX: I48.0 Paroxysmal atrial fibrillation (principal); I25.10 Atherosclerotic heart disease of native coronary artery without angina pectoris; I25.2 Old myocardial infarction; I10 Essential (primary) hypertension; E78.00 Pure hypercholesterolemia, unspecified; Z79.899 Other long term (current) drug therapy; Z98.890 Other specified postprocedural states; Z79.82 Long term (current) use of aspirin; Z88.8 Allergy status to other drugs, medicaments and biological substances
CPT/HCPCS: 36415; 80053; 82553; 84484; 85025; 93005; 93010; 99284; 99285-25

== ENCOUNTER 2017-12-31 08:23 | Day surgery (SDC) | payer MEDICARE, BC ==
[~2017-12-31 08:23] MED LIST: Midazolam 1 MG/ML 2 ML SDV ONE; Propofol 200 MG/20 ML SDV ONE; fentaNYL 100 MCG/2 ML SDV ONE
[2017-12-31] MEDS ORDERED: Lactated Ringers 1,000 ML IV SCH (09:30)
[2017-12-31 12:11] VITALS: BP 148/89
--- NOTE | 2017-12-31 13:35 | OR ---
DATE OF PROCEDURE: 12/31/2017 PROCEDURE: Colonoscopy. FINDINGS: 1. Diverticulosis. 2. Normal anastomosis. COMPLICATIONS: None. ASSISTANTS: None. PREOPERATIVE DIAGNOSIS: History of rectal cancer. POSTOPERATIVE DIAGNOSIS: History of rectal cancer. RISKS: Risks, benefits, alternatives, and limitations including, but not limited to infection, bleeding, and perforation were explained to the patient, who wished to proceed. PROCEDURE IN DETAIL: The patient was placed in left lateral decubitus position. Digital rectal exam was performed without abnormality. The scope was introduced and advanced atraumatically to the ileocecal valve. A photo was taken. The scope was brought back through the ascending, transverse, descending colon, and retroflexed. No evidence of old or new blood. The rectal anastomosis showed absolutely no inflammation, masses, polyps, or any area of concern and has healed quite well over the years. The patient had diverticulosis, which would be described as [id number], but mostly concentrated in the sigmoid colon in its traditional pattern. On retroflex, there were no abnormalities. The patient tolerated the procedure well. Silverio Eisenberg MD /[id number]
== END 2017-12-31 12:42 | disposition home or self-care (01) ==
LOC: JP.SDS 08:23
PROVIDERS: ATTEND Surgery
DX: Z12.11 Encounter for screening for malignant neoplasm of colon (principal); K57.30 Diverticulosis of large intestine without perforation or abscess without bleeding; I10 Essential (primary) hypertension; I25.2 Old myocardial infarction; Z85.048 Personal history of other malignant neoplasm of rectum, rectosigmoid junction, and anus
CPT/HCPCS: G0105; J2250; J2704; J3010; J7120

== ENCOUNTER 2019-08-25 14:35 | Emergency (ER) | payer MEDICARE, BC ==
[2019-08-25 15:01] VITALS: BP 140/76; PULSE 72
[2019-08-25] MEDS ORDERED: Ketorolac 30 MG/ML SDV IM ONE (15:20)
--- NOTE | 2019-08-25 15:23 | EDM.PDOC ---
ED HPI GENERAL MEDICAL PROBLEM - General Chief Complaint: General Stated Complaint: RIGHT TESTICLE PAIN Time Seen by Provider: 08/25/19 15:17 Source of Information: Reports: Patient, RN Notes Reviewed History Limitations: Reports: No Limitations - History of Present Illness INITIAL COMMENTS - FREE TEXT/NARRATIVE: 73-year-old gentleman presents emergency department today complaint of right testicular swelling, he injured himself yesterday when he was doing some floor work he believes he squished his testicle he now is experiencing significant pain Perineal Area Pain Score (Numeric/FACES): 5 - Related Data Allergies Allergy/AdvReac Type Severity Reaction Status Date / Time lisinopril AdvReac Cough Verified 08/25/19 15:02 Home Meds: Home Meds Acetaminophen [Acetaminophen 8 Hour] 650 mg PO Q4HR PRN 08/28/14 [History] Alfuzosin [Uroxatral] 10 mg PO DAILY 08/28/14 [History] Ascorbate Calcium [Vitamin C] 500 mg PO DAILY 08/28/14 [History] Aspirin [Low Dose Aspirin EC] 81 mg PO DAILY 08/28/14 [History] Carvedilol [Coreg] 12.5 mg PO BID 08/28/14 [History] Fish Oil/[place]-3 Fatty Acids [Fish Oil 1,000 MG] 1,000 mg PO BID 08/28/14 [ History] Garlic 1,000 mg PO BID 08/28/14 [History] Losartan Potassium [Cozaar] 100 mg PO DAILY 08/28/14 [History] Multivitamin [Multi-Vitamin Daily] 1 each PO DAILY 08/28/14 [History] Nitroglycerin [Nitrostat] 0.4 mg SL ASDIRECTED 08/28/14 [History] atorvaSTATin [Lipitor] 40 mg PO BEDTIME 08/28/14 [History] amLODIPine [Norvasc] 5 mg PO BEDTIME 12/26/16 [History] Rivaroxaban [Xarelto] 1 tab PO DAILY 07/02/17 [History] Past Medical History HEENT History: Reports: Impaired Vision Other HEENT History: wears glasses Cardiovascular History: Reports: Afib, Angina, CAD, High Cholesterol, Hypertension, [place], Stents Gastrointestinal History: Reports: Colon Polyp Genitourinary History: Reports: BPH, Prostate Disorder Musculoskeletal History: Reports: Neck Pain, Chronic Oncologic (Cancer) History: Reports: Other (See Below) Other Oncologic History: colorectal, chemo radiation and surgery Dermatologic History: Reports: None - Infectious Disease History Infectious Disease History: Reports: Chicken Pox - Past Surgical History Head Surgeries/Procedures: Reports: None HEENT Surgical History: Reports: None Cardiovascular Surgical History: Reports: Cardiac Ablation, Coronary Artery Stent Other Cardiovascular Surgeries/Procedures: last time for stents 2007; cardiac ablation 09/2017 GI Surgical History: Reports: Colonoscopy, Hernia Repair/Other, Other (See Below ) Other GI Surgeries/Procedures: small section of colon removed through rectum d/ t cancer Male Surgical History: Reports: Prostate Biopsy Musculoskeletal Surgical History: Reports: None Oncologic Surgical History: Reports: None Dermatological Surgical History: Reports: Skin Biopsy Social & Family History - Family History Family Medical History: Noncontributory - Tobacco Use Smoking Status *Q: Never Smoker Second Hand Smoke Exposure: No - Caffeine Use Caffeine Use: Reports: Coffee, Tea - Recreational Drug Use Recreational Drug Use: No ED ROS GENERAL - Review of Systems Review Of Systems: See Below Constitutional: Reports: No Symptoms GI/Abdominal: Reports: No Symptoms : Reports: Other (Testicular pain and swelling with foul-smelling urine) ED EXAM, GENERAL - Physical Exam Exam: See Below Free Text/Narrative:: Examination of the genitalia circumcised male the right testicle is markedly swollen and tender I don't appreciate any tenderness to the spermatic cord the left testicle of of normal size and nontender there is no tenderness to the spermatic cord Exam Limited By: No Limitations General Appearance: Alert, WD/WN, No Apparent Distress Course - Vital Signs Last Recorded V/S: Last Vital Signs Temp 99.7 F 08/25/19 15:00 Pulse 72 08/25/19 15:00 Resp 16 08/25/19 15:00 BP 140/76 08/25/19 15:00 Pulse Ox 96 08/25/19 15:00 - Orders/Labs/Meds Labs: Laboratory Tests 08/25/19 Range/Units 17:21 Urine Color [place] A (YELLOW) Urine Appearance Cloudy A (CLEAR) Urine pH 7.0 (5.0-8.0) Ur Specific [place] 1.020 (1.008-1.030) Urine Protein 100 H (NEGATIVE) mg/dL Urine Glucose (UA) Negative (NEGATIVE) mg/dL Urine Ketones Negative (NEGATIVE) mg/dL Urine Occult Blood Moderate H (NEGATIVE) Urine Nitrite Positive H (NEGATIVE) Urine Bilirubin Negative (NEGATIVE) Urine Urobilinogen 1.0 (0.2-1.0) EU/dL Ur Leukocyte Esterase Large H (NEGATIVE) Urine RBC Packed H (0-5) Urine WBC Packed H (0-5) Ur Epithelial Cells Not seen Amorphous Sediment Many Urine Bacteria Moderate Urine Mucus Not seen Meds: Medications Discontinued Medications Generic Name Dose Route Start Last Admin Trade Name Gunjan PRN Reason Stop Dose Admin Ketorolac Tromethamine 30 mg 08/25/19 15:20 08/25/19 15:31 Toradol IM 08/25/19 15:21 30 mg ONETIME ONE Administration Departure - Departure Time of Disposition: 17:37 Disposition: Home, Self-Care 01 Condition: Fair Clinical Impression: Scrotal edema Urinary tract infection Qualifiers: Urinary tract infection type: acute cystitis Hematuria presence: with hematuria Qualified Code(s): N30.01 - Acute cystitis with hematuria - Discharge Information Referrals: Marques Cuadra [employer] [Primary Care Provider] - Forms: ED Department Discharge Additional Instructions: Take full course of antibiotics, use Tylenol as needed for pain control, recommend scrotal support follow-up primary care 3-5 days if no improvement call or return to the emergency department worsening of symptoms - Assessment/Plan Plan: Assessment Acuity = acute Site and laterality = right testicular edema and the urinary tract infection Etiology = secondary to trauma secondary bacterial cause for urinary tract infection Manifestations = none Location of injury = Home Lab values = ultrasound describes soft tissue swelling next to the epididymis and testicle which appear to be intact as well as spermatic cord urinalysis reveals packed RBCs packed WBCs consistent hematuria and pyuria respectively Plan Called discussed the case with Dr. Owen urologist on-call [facility] recommended conservative management at this time, follow-up primary care or return to emergency department worsening of symptoms antibiotics Bactrim DS one tab by mouth twice a day 10 days cultures pending, This note was dictated using [employer] voice recognition software please call with any questions on syntax or grammar.
--- NOTE | 2019-08-25 16:46 | CRLUS ---
Indication: Trauma Technique: Ultrasound of the scrotum and contents. Sonographic ordoñez-scale images were obtained with spectral and color Doppler waveform and spectral waveform analysis of the testicles. Comparison: None Findings: Bother testicles are normal in size and echotexture. No masses. No suspicious calcifications. Normal arterial and venous color Doppler blood flow and spectral waveforms are present in both testicles. Epididymis: Unremarkable bilaterally. Normal blood flow. Other: There is a moderate size septated hydrocele on the right. Complex edematous soft tissue is adjacent to the right epididymis. No sign of varicocele. Impression: Edematous soft tissue adjacent to the right epididymis and moderate size complex hydrocele on the right. These are likely posttraumatic findings. Testicles are normal. No other abnormality. Dictated by Vincent Quezada MD @ 08/25/2019 4:43:54 PM Dictated by: Vincent Quezada MD @ 08/25/2019 16:44:00 (Electronically Signed)
== END 2019-08-25 17:50 | disposition home or self-care (01) ==
LOC: JP.ED 14:35
DX: N50.89 Other specified disorders of the male genital organs (principal); I25.2 Old myocardial infarction; I10 Essential (primary) hypertension; I25.10 Atherosclerotic heart disease of native coronary artery without angina pectoris; I20.9 Angina pectoris, unspecified; Z95.5 Presence of coronary angioplasty implant and graft; Z88.8 Allergy status to other drugs, medicaments and biological substances; Z79.82 Long term (current) use of aspirin; Z79.899 Other long term (current) drug therapy
CPT/HCPCS: 76870; 81001; 87086; 87088; 87186; 96372; 99284; J1885

== ENCOUNTER 2023-01-29 08:33 | Day surgery (SDC) | payer MEDICARE, BC ==
[2023-01-29] MEDS ORDERED: Dextrose 5%-Lactated Ringers 1,000 ML IV SCH (09:00)
[2023-01-29] MEDS ORDERED: Propofol 200 MG/20 ML SDV ONE ×2 (09:38→11:06)
[2023-01-29] MEDS ORDERED: fentaNYL 100 MCG/2 ML SDV ONE (09:38)
[2023-01-29 12:19] VITALS: BP 146/68; PULSE 55
== END 2023-01-29 12:28 | disposition home or self-care (01) ==
LOC: JP.SDS 08:33
PROVIDERS: ATTEND Surgery
DX: Z12.11 Encounter for screening for malignant neoplasm of colon (principal); K57.30 Diverticulosis of large intestine without perforation or abscess without bleeding; K64.8 Other hemorrhoids; I10 Essential (primary) hypertension; I25.10 Atherosclerotic heart disease of native coronary artery without angina pectoris; Z88.8 Allergy status to other drugs, medicaments and biological substances; Z85.038 Personal history of other malignant neoplasm of large intestine; Z98.0 Intestinal bypass and anastomosis status
CPT/HCPCS: G0105; J2704; J3010; J7121

== ENCOUNTER 2023-10-27 23:40 | Emergency (ER) | payer MEDICARE, BC ==
[2023-10-28 01:20] LABS: BASOPHILS PERCENT AUTO 0.5 % (0.1-1.3); EOSINOPHILS ABSOLUTE AUTO 0.25 K/uL (0.00-0.40); EOSINOPHILS PERCENT AUTO 6.9 % (0.0-5.4); HEMATOCRIT 34.3 % (38.4-49.7); HEMOGLOBIN 11.9 g/dL (12.9-16.9); IMMATURE GRAN PERCENT AUTO 0.3 % (0.0-0.7); LYMPHOCYTES ABSOLUTE AUTO 0.73 K/uL (0.8-3.3); LYMPHOCYTES PERCENT AUTO 20.1 % (11.4-47.7); MEAN CORPUSCULAR HGB CONC 34.7 g/dL (31.6-35.5); MEAN CORPUSCULAR VOLUME 89.3 fL (81.4-99.0); MONOCYTES ABSOLUTE AUTO 0.55 K/uL (0.20-0.90); MONOCYTES PERCENT AUTO 15.1 % (3.3-12.6); NEUTROPHILS ABSOLUTE AUTO 2.08 K/uL (1.0-7.6); NEUTROPHILS PERCENT AUTO 57.1 % (40.0-78.1); PLATELET COUNT,PLT 193 K/uL (130-375); RED BLOOD CELL COUNT 3.84 M/uL (4.14-5.76); WHITE BLOOD CELL COUNT,WBC 3.6 K/uL (3.2-11.0)
[2023-10-28 01:21] LABS: BASOPHILS ABSOLUTE AUTO 0.02 K/uL (0.00-0.10); IMMATURE GRAN ABSOLUTE AUTO 0.01 K/uL (0.00-0.23)
[2023-10-28 01:40] LABS: ANION GAP 10.3 mmol/L (5.0-14.0); CALCIUM 8.3 mg/dL (8.5-10.1); CREATININE 0.9 mg/dL (0.8-1.3); EST CRCL DRUG DOSING (CG) 68.74 mL/min; MAGNESIUM 1.7 mg/dL (1.8-2.4); POTASSIUM,K 3.8 mmol/L (3.6-5.2)
[2023-10-28] MEDS: Sodium Chloride 0.9% 1,000 ML IV ONE (02:16)
[2023-10-28] MEDS: Metoprolol Succinate 50 MG Tab.ER PO ONE (03:57)
[2023-10-28] MEDS: Rivaroxaban 15 MG Tab PO SCH (11:26)
[2023-10-28] MEDS: Aspirin 81 MG Tab.Chew PO ONE (11:26)
[2023-10-28] MEDS: Diltiazem 25 MG/5 ML SDV IVPUSH ONE (11:27)
[2023-10-28 11:54] VITALS: BP 130/67; PULSE 54
== END 2023-10-28 12:30 | disposition other institution (70) ==
LOC: JP.ED 23:40
DX: I48.91 Unspecified atrial fibrillation (principal); I24.89 Other forms of acute ischemic heart disease; I25.10 Atherosclerotic heart disease of native coronary artery without angina pectoris; E78.00 Pure hypercholesterolemia, unspecified; I25.2 Old myocardial infarction; Z79.01 Long term (current) use of anticoagulants; Z79.899 Other long term (current) drug therapy; Z79.82 Long term (current) use of aspirin; Z88.8 Allergy status to other drugs, medicaments and biological substances; Z95.5 Presence of coronary angioplasty implant and graft
CPT/HCPCS: 36415; 80048; 83735; 84484; 85025; 93005; 96360; 99285-25; A9270-GY; J7030

== ENCOUNTER 2023-11-24 12:34 | Emergency (ER) | payer MEDICARE, BC ==
[2023-11-24 12:58] LABS: BASOPHILS PERCENT AUTO 0.2 % (0.1-1.3); EOSINOPHILS ABSOLUTE AUTO 0.22 K/uL (0.00-0.40); EOSINOPHILS PERCENT AUTO 5.3 % (0.0-5.4); HEMATOCRIT 34.8 % (38.4-49.7); HEMOGLOBIN 12.1 g/dL (12.9-16.9); IMMATURE GRAN PERCENT AUTO 0.2 % (0.0-0.7); LYMPHOCYTES ABSOLUTE AUTO 0.66 K/uL (0.8-3.3); LYMPHOCYTES PERCENT AUTO 15.8 % (11.4-47.7); MEAN CORPUSCULAR HEMOGLOBIN 30.8 pg (31.6-35.5); MEAN CORPUSCULAR HGB CONC 34.8 g/dL (31.6-35.5); MEAN CORPUSCULAR VOLUME 88.5 fL (81.4-99.0); MONOCYTES ABSOLUTE AUTO 0.46 K/uL (0.20-0.90); NEUTROPHILS ABSOLUTE AUTO 2.83 K/uL (1.0-7.6); NEUTROPHILS PERCENT AUTO 67.5 % (40.0-78.1); PLATELET COUNT,PLT 188 K/uL (130-375); RED BLOOD CELL COUNT 3.93 M/uL (4.14-5.76); WHITE BLOOD CELL COUNT,WBC 4.2 K/uL (3.2-11.0)
[2023-11-24 13:02] LABS: BASOPHILS ABSOLUTE AUTO 0.01 K/uL (0.00-0.10); IMMATURE GRAN ABSOLUTE AUTO 0.01 K/uL (0.00-0.23)
[2023-11-24 13:12] LABS: INR 1.3; PROTHROMBIN TIME 13.1 sec (9.2-10.6)
[2023-11-24 13:22] LABS: ALANINE AMINOTRANSFERASE,ALT 24 U/L (12-78); ALBUMIN 3.2 g/dL (3.4-5.0); ALKALINE PHOSPHATASE 78 U/L (46-116); AMYLASE 46 U/L (25-115); ASPARTATE AMNIOTRANSFERASE,AST 24 U/L (15-37); BILIRUBIN TOTAL 0.8 mg/dL (0.2-1.0); BLOOD UREA NITROGEN,BUN 15 mg/dL (7-18); CALCIUM 8.3 mg/dL (8.5-10.1); CARBON DIOXIDE,CO2 28 mmol/L (21-32); CHLORIDE,CL 103 mmol/L (100-108); ESTIMATED GFR 77 mL/min (>60); GLUCOSE RANDOM 142 mg/dL (74-106); MAGNESIUM 1.8 mg/dL (1.8-2.4); POTASSIUM,K 3.9 mmol/L (3.6-5.2); PRO B-TYPE NATRIUR PEPT,BNPPRO 231 pg/mL (5-450); PROTEIN TOTAL,TP 6.3 g/dL (6.4-8.2); SODIUM,NA 137 mmol/L (140-148)
[2023-11-24 13:23] LABS: ANION GAP 9.9 mmol/L (5.0-14.0); TROPONIN I HIGH SENSITIVITY 110.9 pg/mL (<=60.3)
[2023-11-24 13:47] LABS: CORONAVIRUS COVID-19 NAA NEGATIVE (NEGATIVE); INFLUENZA A NAA NEGATIVE (NEGATIVE); INFLUENZA B NAA NEGATIVE (NEGATIVE); RESPIRATORY SYNCYTIAL VIR NAA NEGATIVE (NEGATIVE)
[2023-11-24] MEDS: Aspirin 81 MG Tab.Chew PO ONE (14:16)
[2023-11-24] MEDS: Sodium Chloride 0.9% 10 ML Syringe FLUSH PRN (14:17)
[2023-11-24 14:19] LABS: APPEARANCE,URINE CLEAR (CLEAR); BILIRUBIN,URINE NEGATIVE (NEGATIVE); COLOR,URINE YELLOW (YELLOW); GLUCOSE,URINE NEGATIVE (NEGATIVE); KETONES,URINE NEGATIVE (NEGATIVE); LEUKOCYTE ESTERASE,URINE NEGATIVE (NEGATIVE); NITRITE,URINE NEGATIVE (NEGATIVE); OCCULT BLOOD,URINE NEGATIVE (NEGATIVE); PROTEIN,URINE NEGATIVE (NEGATIVE); UROBILINOGEN,URINE 0.2 EU/dL (0.2-1.0)
[2023-11-24 14:25] LABS: AMORPHOUS SEDIMENT,URINE NOT SEEN; BACTERIA,URINE RARE; EPITHELIAL CELLS,URINE NOT SEEN; MUCUS,URINE NOT SEEN; RBC,URINE 0-5 (0-5); WBC,URINE 0-5 (0-5)
[2023-11-24] MEDS: Sodium Chloride 0.9% 1,000 ML IV SCH (15:33)
[2023-11-24] MEDS: Morphine 2 MG/ML SYRINGE IVPUSH PRN (15:35)
[2023-11-24] MEDS: Nitroglycerin 0.4 MG Tab.SL SL PRN (15:49)
[2023-11-24] MEDS: Heparin Sodium 5,000 Units/ML Vial IVPUSH ONE (15:51)
[2023-11-24] MEDS: Heparin Sodium/D5W 25,000 UNITS/500 ML BAG IV SCH (15:51)
[2023-11-24 16:22] VITALS: BP 142/81; PULSE 51
== END 2023-11-24 16:30 ==
LOC: JP.ED 12:34
DX: I21.4 Non-ST elevation (NSTEMI) myocardial infarction (principal); I24.9 Acute ischemic heart disease, unspecified; I11.0 Hypertensive heart disease with heart failure; I50.9 Heart failure, unspecified; I25.810 Atherosclerosis of coronary artery bypass graft(s) without angina pectoris; I25.2 Old myocardial infarction; E78.00 Pure hypercholesterolemia, unspecified; Z88.8 Allergy status to other drugs, medicaments and biological substances; Z79.899 Other long term (current) drug therapy; Z79.82 Long term (current) use of aspirin; Z86.16 Personal history of COVID-19
CPT/HCPCS: 0241U; 36415; 71045; 71045-26; 80053; 81001; 82150; 83690; 83735; 83880; 84484; 85025; 85610; 96365; 96375; 99284; 99285-25; A9270-GY; J1644; J2270; J3490; J7030

== ENCOUNTER 2024-11-24 08:58 | Emergency (ER) | payer MEDICARE, BC ==
[2024-11-24 09:51] LABS: BASOPHILS PERCENT AUTO 0.3 % (0.1-1.3); EOSINOPHILS ABSOLUTE AUTO 0.13 K/uL (0.00-0.40); EOSINOPHILS PERCENT AUTO 4.1 % (0.0-5.4); HEMATOCRIT 36.3 % (38.4-49.7); LYMPHOCYTES ABSOLUTE AUTO 0.67 K/uL (0.8-3.3); LYMPHOCYTES PERCENT AUTO 21.3 % (11.4-47.7); MEAN CORPUSCULAR HEMOGLOBIN 31.4 pg (31.6-35.5); MEAN CORPUSCULAR HGB CONC 35.8 g/dL (31.6-35.5); MEAN CORPUSCULAR VOLUME 87.7 fL (81.4-99.0); MONOCYTES ABSOLUTE AUTO 0.38 K/uL (0.20-0.90); MONOCYTES PERCENT AUTO 12.1 % (3.3-12.6); NEUTROPHILS ABSOLUTE AUTO 1.96 K/uL (1.0-7.6); NEUTROPHILS PERCENT AUTO 62.2 % (40.0-78.1); PLATELET COUNT,PLT 201 K/uL (130-375); RED BLOOD CELL COUNT 4.14 M/uL (4.14-5.76); WHITE BLOOD CELL COUNT,WBC 3.2 K/uL (3.2-11.0)
[2024-11-24 09:53] LABS: BASOPHILS ABSOLUTE AUTO 0.01 K/uL (0.00-0.10)
[2024-11-24 10:03] LABS: ANION GAP 9.5 mmol/L (5.0-14.0); CREATININE 0.9 mg/dL (0.8-1.3); EST CRCL DRUG DOSING (CG) 64.39 mL/min; POTASSIUM,K 3.7 mmol/L (3.6-5.2)
[2024-11-24 10:05] LABS: TROPONIN I HIGH SENSITIVITY 60.4 pg/mL (<=60.3)
[2024-11-24] MEDS: Diltiazem 25 MG/5 ML SDV IVPUSH ONE (10:26)
[2024-11-24 12:51] VITALS: BP 121/67; PULSE 44
== END 2024-11-24 12:48 | disposition home or self-care (01) ==
LOC: JP.ED 08:58
DX: I48.91 Unspecified atrial fibrillation (principal); I10 Essential (primary) hypertension; I25.10 Atherosclerotic heart disease of native coronary artery without angina pectoris; I25.2 Old myocardial infarction; E78.00 Pure hypercholesterolemia, unspecified; Z86.16 Personal history of COVID-19; Z95.5 Presence of coronary angioplasty implant and graft; Z79.899 Other long term (current) drug therapy; Z79.01 Long term (current) use of anticoagulants; Z79.82 Long term (current) use of aspirin; Z88.8 Allergy status to other drugs, medicaments and biological substances
CPT/HCPCS: 36415; 80048; 84484; 85025; 93005; 96374; 99285; J3490

== ENCOUNTER 2025-02-06 20:22 | Emergency (ER) | payer MEDICARE, BC ==
[2025-02-06 20:56] LABS: BASOPHILS PERCENT AUTO 0.5 % (0.1-1.3); EOSINOPHILS ABSOLUTE AUTO 0.31 K/uL (0.00-0.40); EOSINOPHILS PERCENT AUTO 7.2 % (0.0-5.4); HEMATOCRIT 35.4 % (38.4-49.7); HEMOGLOBIN 12.3 g/dL (12.9-16.9); IMMATURE GRAN PERCENT AUTO 0.2 % (0.0-0.7); LYMPHOCYTES ABSOLUTE AUTO 0.71 K/uL (0.8-3.3); LYMPHOCYTES PERCENT AUTO 16.4 % (11.4-47.7); MEAN CORPUSCULAR HEMOGLOBIN 31.6 pg (31.6-35.5); MEAN CORPUSCULAR HGB CONC 34.7 g/dL (31.6-35.5); MONOCYTES ABSOLUTE AUTO 0.57 K/uL (0.20-0.90); MONOCYTES PERCENT AUTO 13.2 % (3.3-12.6); NEUTROPHILS ABSOLUTE AUTO 2.71 K/uL (1.0-7.6); NEUTROPHILS PERCENT AUTO 62.5 % (40.0-78.1); PLATELET COUNT,PLT 191 K/uL (130-375); RED BLOOD CELL COUNT 3.89 M/uL (4.14-5.76); WHITE BLOOD CELL COUNT,WBC 4.3 K/uL (3.2-11.0)
[2025-02-06 20:57] LABS: BASOPHILS ABSOLUTE AUTO 0.02 K/uL (0.00-0.10); IMMATURE GRAN ABSOLUTE AUTO 0.01 K/uL (0.00-0.23)
[2025-02-06 21:19] LABS: ANION GAP 11.6 mmol/L (5.0-14.0); CALCIUM 9.2 mg/dL (8.5-10.1); EST CRCL DRUG DOSING (CG) 57.95 mL/min; POTASSIUM,K 3.8 mmol/L (3.6-5.2)
[2025-02-06] MEDS: Diltiazem 25 MG/5 ML SDV IVPUSH ONE (21:19)
[2025-02-06 21:20] LABS: TROPONIN I HIGH SENSITIVITY 69.5 pg/mL (<=60.3)
[2025-02-06] MEDS: Sodium Chloride 0.9% 500 ML IV ONE (21:58)
[2025-02-06 22:42] VITALS: BP 140/71; PULSE 49
== END 2025-02-06 23:40 | disposition home or self-care (01) ==
LOC: JP.ED 20:22
DX: I48.91 Unspecified atrial fibrillation (principal); I10 Essential (primary) hypertension; I25.2 Old myocardial infarction; I25.10 Atherosclerotic heart disease of native coronary artery without angina pectoris; E78.00 Pure hypercholesterolemia, unspecified; Z88.8 Allergy status to other drugs, medicaments and biological substances; Z79.82 Long term (current) use of aspirin; Z79.899 Other long term (current) drug therapy; Z86.16 Personal history of COVID-19
CPT/HCPCS: 36415; 80048; 84484; 85025; 93005; 96361; 96374; 99285; J3490; J7040

== ENCOUNTER 2025-04-03 16:19 | Emergency (ER) | payer MEDICARE, BC ==
[2025-04-03 18:17] LABS: BASOPHILS PERCENT AUTO 0.3 % (0.1-1.3); EOSINOPHILS ABSOLUTE AUTO 0.22 K/uL (0.00-0.40); EOSINOPHILS PERCENT AUTO 6.7 % (0.0-5.4); HEMATOCRIT 35.5 % (38.4-49.7); HEMOGLOBIN 12.1 g/dL (12.9-16.9); IMMATURE GRAN PERCENT AUTO 0.3 % (0.0-0.7); LYMPHOCYTES ABSOLUTE AUTO 0.77 K/uL (0.8-3.3); LYMPHOCYTES PERCENT AUTO 23.5 % (11.4-47.7); MEAN CORPUSCULAR HEMOGLOBIN 31.5 pg (31.6-35.5); MEAN CORPUSCULAR HGB CONC 34.1 g/dL (31.6-35.5); MEAN CORPUSCULAR VOLUME 92.4 fL (81.4-99.0); MONOCYTES ABSOLUTE AUTO 0.45 K/uL (0.20-0.90); MONOCYTES PERCENT AUTO 13.8 % (3.3-12.6); NEUTROPHILS ABSOLUTE AUTO 1.81 K/uL (1.0-7.6); NEUTROPHILS PERCENT AUTO 55.4 % (40.0-78.1); PLATELET COUNT,PLT 182 K/uL (130-375); RED BLOOD CELL COUNT 3.84 M/uL (4.14-5.76); WHITE BLOOD CELL COUNT,WBC 3.3 K/uL (3.2-11.0)
[2025-04-03 18:18] LABS: BASOPHILS ABSOLUTE AUTO 0.01 K/uL (0.00-0.10); IMMATURE GRAN ABSOLUTE AUTO 0.01 K/uL (0.00-0.23)
[2025-04-03 18:42] LABS: ANION GAP 6.3 mmol/L (5.0-14.0); CALCIUM 8.9 mg/dL (8.5-10.1); CREATININE 0.9 mg/dL (0.8-1.3); EST CRCL DRUG DOSING (CG) 64.39 mL/min; POTASSIUM,K 3.7 mmol/L (3.6-5.2); TROPONIN I HIGH SENSITIVITY 49.8 pg/mL (<=60.3)
[2025-04-03] MEDS: Sodium Chloride 0.9% 1,000 ML IV SCH (19:05)
[2025-04-03] MEDS: Diltiazem 25 MG/5 ML SDV IVPUSH ONE (19:05)
[2025-04-03 20:11] VITALS: BP 138/66; PULSE 70
== END 2025-04-03 20:41 | disposition home or self-care (01) ==
LOC: JP.ED 16:19
DX: I48.91 Unspecified atrial fibrillation (principal); E78.00 Pure hypercholesterolemia, unspecified; I25.2 Old myocardial infarction; I10 Essential (primary) hypertension; Z86.16 Personal history of COVID-19; Z88.8 Allergy status to other drugs, medicaments and biological substances; Z79.82 Long term (current) use of aspirin; Z79.899 Other long term (current) drug therapy; Z79.01 Long term (current) use of anticoagulants
CPT/HCPCS: 36415; 80048; 84484; 85025; 93005; 93010; 96361; 96374; 99284; 99285-25; J3490; J7030